=== PATIENT | female | born 1960 | race Caucasian/White ===

== ENCOUNTER → 2024-03-24 | Outpatient (CLI) | payer OTHER ==
[~2024-03-24] MED LIST: Gadoterate 20 ML VIAL IV ONE; HCTZ 25MG TAB25 MG PO; NEURONTIN400 MG/CAP PO
== END ==
LOC: COL.RAD 06:54
DX: M47.816 Spondylosis without myelopathy or radiculopathy, lumbar region (principal)
CPT/HCPCS: A9575